=== PATIENT | male | born 1940 | race Caucasian/White ===

== ENCOUNTER 2016-06-21 09:21 | Emergency (ER) | payer OTHER ==
[~2016-06-21] VITALS: Ht 172.7 cm; Wt 97.0 kg
[~2016-06-21 09:21] MED LIST: ADVAIR 250/501 DISK IH; ADVAIR HFA120 INHAL1 IH; ALBUTEROL SULF8.5 GM IH; ALDACTONE25 MG PO; AMBIEN10 MG PO; AMLODIPINE BESYL5 MG PO; ASPIR 8181 M1 PO; ASPIRIN E.C.81 M1 PO; ASPIRIN325 MG PO; ATORVASTATIN CA40 MG PO; ATORVASTATIN CA80 MG PO; BACTRIM,SEPT1 TABLET PO; BENTYL10 MG PO; BISAC-EVAC10 MG PR; CALCIUM600 M1 PO; CIPRO500 MG PO; CITRATE OF MAG296 ML PO; CRESTOR40 MG PO; DESYREL100 MG PO; DUONEB3 ML IH; ELIQUIS5 MG PO; ENDOCET 5-3251 EACH PO; ERGOCALCIF50000 UNIT PO; ESOMEPRAZOLE MAG; FAMOTIDINE20 MG PO; FLOMAX0.4 MG PO; FUROSEMIDE20 MG PO; FUROSEMIDE40 MG PO; GLIPIZIDE10 M1 PO; GLIPIZIDE5 M1 PO; Glucotrol PO; HUMULIN 70100 UNIT/2 SC; HYDROCODON-ACE1 EAC7 PO; K-DUR10 ME1 PO; KLOR-CON M1010 MEQ PO; LANTUS; LANTUS 10100 UNITS/ SC; LANTUS 3 M100 UNITS/ SC; LASIX20 MG PO; LEVOFLOXACIN750 MG PO; LEVOXYL50 MCG PO; LISINOPRIL5 MG PO; LO-DOSE ASPIRIN81 M2 PO; LOPRESSOR25 MG PO; LOVENOX30 MG/0.3 SC; METFORMIN HCL500 M1 PO; METOPROLOL SUCC50 MG PO; MIDODRINE HCL5 MG PO; MILK OF MAGN PO; MIRALAX17 GM PO; MUCINEX600 MG PO; NIZORAL 2% CREA15 GM TP; NOVOLOG MI100 UNIT/4 SC; PANTOPRAZOLE SO40 MG PO; PANTOPRAZOLE SODIUM; PERCOCET 5/31 TABLET PO; POTASSIUM CHLO10 ME4 PO; PRINIVIL5 MG PO; PROTONIX40 MG PO; SIMVASTATIN80 MG PO; SPIRIVA RESPIMAT4 GM IH; SPIRIVA1 INHALATI IH; SPIRONOLACTONE25 MG PO; STOOL SOFTENER1 EAC1 PO; SYMBICORT60 INHALAT IH; TAMSULOSIN HCL0.4 MG PO; THEO-24300 MG PO; THEO-DUR,THEOC200 MG PO; THEOCHRON200 MG PO; THEOPHYLLINE A300 M1 PO; TOPROL XL50 MG PO; TRAZODONE HCL100 MG PO; TRAZODONE HCL50 MG PO; VALIUM5 MG PO; VENTOLIN HFA18 GM IH; VITAMIN D1000 INTUN PO; VITAMIN D1000 UNIT PO; VITAMIN D31000 UNI2 PO; VITAMIN D50000 UNI4 PO; Vitamin D PO; XOPENEX HFA15 GM IH; ZOLPIDEM TARTRA10 MG PO; ZOLPIDEM TARTRAT5 MG PO; predniSONE PO
[2016-06-21 10:31] LABS: MCH 30.5 PG (29.0-34.0); MCV 92.5 FL (86-99); RBC DIS.WIDTH-CV 15.3 % (11.8-14.6); RBC DIS.WIDTH-SD 49.2 % (39-53); WHITE BLOOD COUNT 6.7 K/uL (4.1-10.2)
[2016-06-21 10:34] LABS: PLATELET COUNT 266 K/uL (156-360)
[2016-06-21 10:47] LABS: CHLORIDE 104 mEq/L (99-109); POTASSIUM 4.5 mEq/L (3.7-5.4); SODIUM 134 mEq/L (136-147)
[2016-06-21 10:49] LABS: GLUCOSE 132 mg/dL (70-99)
[2016-06-21 10:50] LABS: ANION GAP 12 MEQ/L (2-14)
[2016-06-21 10:51] LABS: TOTAL BILIRUBIN 0.6 mg/dL (0.0-1.0)
[2016-06-21 10:53] LABS: ALKALINE PHOSPHATASE 81 IU/L (3-129); GFR ESTIMATE (CALCULATED) 45 mL/min/
[2016-06-21 10:54] LABS: UREA NITROGEN (BUN) 33 mg/dL (9-23)
[2016-06-21 13:50] VITALS: BP 170/90
[2016-06-22] MEDS ORDERED: DURAGESIC50 MCG TD (15:36)
== END 2016-06-21 13:50 | disposition home or self-care (01) ==
LOC: EME 09:21
DX: K59.00 Constipation, unspecified (principal); R10.9 Unspecified abdominal pain; E11.9 Type 2 diabetes mellitus without complications; I25.2 Old myocardial infarction
CPT/HCPCS: 74020; 80053; 81003; 85027; 99281; 99284

== ENCOUNTER 2016-06-22 09:37 | Emergency (ER) | payer OTHER ==
[~2016-06-22] VITALS: Ht 172.7 cm; Wt 96.4 kg
[2016-06-22 13:31] LABS: HEMATOCRIT 34.4 % (38.0-50.0); MCHC 32.6 G/DL (30.0-36.0); MCV 92.2 FL (86-99); MEAN PLAT.VOLUME 9.4 uM^3 (9.0-12.4); PLATELET COUNT 239 K/uL (156-360); RBC DIS.WIDTH-CV 15.3 % (11.8-14.6); RBC DIS.WIDTH-SD 49.6 % (39-53); RED BLOOD COUNT 3.73 M/uL (4.00-5.50); WHITE BLOOD COUNT 6.1 K/uL (4.1-10.2)
[2016-06-22 13:32] LABS: CHLORIDE 105 mEq/L (99-109); POTASSIUM 4.6 mEq/L (3.7-5.4); SODIUM 134 mEq/L (136-147)
[2016-06-22 13:34] LABS: GLUCOSE 117 mg/dL (70-99)
[2016-06-22 13:35] LABS: ANION GAP 8 MEQ/L (2-14)
[2016-06-22 13:38] LABS: GFR ESTIMATE (CALCULATED) 37 mL/min/
[2016-06-22 13:39] LABS: UREA NITROGEN (BUN) 38 mg/dL (9-23)
[2016-06-22 14:43] LABS: ADD MIUA? YES; BILIRUBIN SMALL; BLOOD LARGE; COLOR DK YELLOW ((YELLOW)); GLUCOSE (STRIP) 250; KETONES TRACE; LEUKOCYTES NEGATIVE; NITRITE NEGATIVE; PH, URINE 5.5 (5-8); PROTEIN (STRIP) >=300; SPECIFIC GRAVITY 1.034 (1.000-1.030); UROBILINOGEN 0.2 MG/DL (0.2-1.0)
[2016-06-22 15:00] LABS: EPITHELIAL CELLS 1+; WHITE BLOOD CELLS NONE SEEN /HPF (0-5)
[2016-06-22 15:01] LABS: BACTERIA RARE; CASTS PRESENT /LPF; CRYSTALS NONE SEEN; MUCUS NONE SEEN; UCUL ADDED? NO
[2016-06-22] MEDS ORDERED: DURAGESIC50 MCG TD (15:36)
[2016-06-22 16:02] VITALS: BP 132/95
== END 2016-06-22 16:04 | disposition home or self-care (01) ==
LOC: EME 09:37
PROVIDERS: Emergency Medicine
DX: M54.5 Low back pain (principal); R41.0 Disorientation, unspecified; E11.9 Type 2 diabetes mellitus without complications; I25.2 Old myocardial infarction; I50.9 Heart failure, unspecified; W01.198A Fall on same level from slipping, tripping and stumbling with subsequent striking against other object, initial encounter; Z95.1 Presence of aortocoronary bypass graft; Z95.0 Presence of cardiac pacemaker
CPT/HCPCS: 70450; 80048; 81003; 85027; 99281; 99285

== ENCOUNTER 2016-07-08 15:11 | Inpatient (IN) | payer OTHER ==
[~2016-07-08] VITALS: Ht 152.4 cm; Wt 98.7 kg
[~2016-07-08 15:11] MED LIST changes: +DURAGESIC50 MCG TD
[2016-07-08 16:45] LABS: HEMATOCRIT 31.3 % (38.0-50.0); MCH 30.4 PG (29.0-34.0); MCHC 32.6 G/DL (30.0-36.0); MCV 93.2 FL (86-99); MEAN PLAT.VOLUME 8.8 uM^3 (9.0-12.4); PLATELET COUNT 302 K/uL (156-360); RBC DIS.WIDTH-CV 15.2 % (11.8-14.6); RBC DIS.WIDTH-SD 49.1 % (39-53); RED BLOOD COUNT 3.36 M/uL (4.00-5.50); WHITE BLOOD COUNT 5.4 K/uL (4.1-10.2)
[2016-07-08 16:56] LABS: CHLORIDE 105 mEq/L (99-109); POTASSIUM 5.1 mEq/L (3.7-5.4); SODIUM 135 mEq/L (136-147)
[2016-07-08 16:58] LABS: GLUCOSE 108 mg/dL (70-99)
[2016-07-08 16:59] LABS: ANION GAP 6 MEQ/L (2-14)
[2016-07-08 17:00] LABS: TOTAL BILIRUBIN 0.2 mg/dL (0.0-1.0)
[2016-07-08 17:02] LABS: ALKALINE PHOSPHATASE 97 IU/L (3-129); GFR ESTIMATE (CALCULATED) 42 mL/min/
[2016-07-08 17:03] LABS: UREA NITROGEN (BUN) 35 mg/dL (9-23)
[2016-07-08 17:05] LABS: LIPASE 48 U/L (1.0-51.0)
[2016-07-08 17:41] LABS: ADD MIUA? YES; BILIRUBIN NEGATIVE; BLOOD MODERATE; COLOR YELLOW ((YELLOW)); GLUCOSE (STRIP) 250; KETONES NEGATIVE; LEUKOCYTES NEGATIVE; NITRITE NEGATIVE; PROTEIN (STRIP) >=300; SPECIFIC GRAVITY 1.027 (1.000-1.030); UROBILINOGEN 0.2 MG/DL (0.2-1.0)
[2016-07-08 17:43] LABS: TROP-I INTERPRETATION NEGATIVE
[2016-07-08] MEDS ORDERED: ENDOCET 5-3251 EACH PO (18:36)
[2016-07-08 18:38] LABS: CASTS NONE SEEN /LPF; CRYSTALS NONE SEEN; MUCUS NONE SEEN; RED BLOOD CELLS 0-5 /HPF (0-5); WHITE BLOOD CELLS NONE SEEN /HPF (0-5)
[2016-07-08 18:39] LABS: BACTERIA RARE; EPITHELIAL CELLS NONE SEEN
[2016-07-09 07:24] LABS: INTERNAL CONTROL VALID? YES
[2016-07-09 16:49] VITALS: BP 151/85
[2016-07-09] MEDS ORDERED: FLOMAX0.4 MG PO (18:15)
[2016-07-09] MEDS ORDERED: LASIX20 MG PO (18:16)
[2016-07-09] MEDS ORDERED: DURAGESIC25 MCG TD (18:21)
[2016-07-09] MEDS ORDERED: LISINOPRIL5 MG PO (18:22)
[2016-07-09] MEDS ORDERED: ELIQUIS5 MG PO (18:23)
[2016-07-09] MEDS ORDERED: KLOR-CON 1010 ME1 PO (18:26)
[2016-07-09] MEDS ORDERED: METOPROLOL TART25 MG PO (18:27)
[2016-07-09] MEDS ORDERED: ATORVASTATIN CA80 MG PO (19:38)
[2016-07-09 22:46] VITALS: BP 172/86
[2016-07-10 03:42] LABS: ADD MIUA? YES; BILIRUBIN NEGATIVE; BLOOD LARGE; COLOR YELLOW ((YELLOW)); GLUCOSE (STRIP) 250; KETONES NEGATIVE; LEUKOCYTES NEGATIVE; NITRITE NEGATIVE; PROTEIN (STRIP) >=300; SPECIFIC GRAVITY 1.024 (1.000-1.030); UROBILINOGEN 0.2 MG/DL (0.2-1.0)
[2016-07-10 04:15] LABS: BACTERIA 1+; CASTS PRESENT /LPF; CRYSTALS NONE SEEN; EPITHELIAL CELLS NONE SEEN; MUCUS NONE SEEN; UCUL ADDED? NO
[2016-07-10 04:16] LABS: CELLULAR CASTS 0-5 /LPF; COARSE GRANULAR CASTS 0-5 /LPF; FINE GRANULAR CASTS 0-5 /LPF; HYALINE CASTS 0-5 /LPF
[2016-07-10 06:52] LABS: EOSINOPHIL (%) 4.6 % (0-5); EOSINOPHIL COUNT 0.2 K/uL (0-0.3); HEMATOCRIT 30.8 % (38.0-50.0); IMMATURE GRANULOCYTE (%) 0.5 % (0.0-0.7); MCH 30.2 PG (29.0-34.0); MCHC 31.8 G/DL (30.0-36.0); MCV 94.8 FL (86-99); MEAN PLAT.VOLUME 9.3 uM^3 (9.0-12.4); MONOCYTE (%) 10.2 % (3-12); MONOCYTE COUNT 0.4 K/uL (0-0.8); NEUTROPHIL (%) 60.1 % (45-76); NEUTROPHIL COUNT 2.5 K/uL (1.8-6.4); PLATELET COUNT 271 K/uL (156-360); RBC DIS.WIDTH-CV 15.5 % (11.8-14.6); RBC DIS.WIDTH-SD 53.5 % (39-53); RED BLOOD COUNT 3.25 M/uL (4.00-5.50); WHITE BLOOD COUNT 4.1 K/uL (4.1-10.2)
[2016-07-10 07:15] LABS: ANION GAP 6 MEQ/L (2-14); CHLORIDE 106 MEQ/L (99-109); GFR ESTIMATE (CALCULATED) 45 mL/min/; GLUCOSE 88 mg/dL (70-99); POTASSIUM 4.9 MEQ/L (3.7-5.4); SAMPLE HEMOLYSIS CHECK 0; SAMPLE ICTERIC CHECK 0; SAMPLE LIPEMIA CHECK 0; SODIUM 134 MEQ/L (136-147); UREA NITROGEN (BUN) 32 mg/dL (9-23)
[2016-07-10 08:43] VITALS: BP 175/83
[2016-07-10] MEDS ORDERED: AMBIEN10 MG PO (12:52)
[2016-07-10 16:47] VITALS: BP 180/93
[2016-07-10 23:15] VITALS: BP 151/82
[2016-07-11 06:22] LABS: ANION GAP 5 MEQ/L (2-14); CHLORIDE 105 MEQ/L (99-109); GFR ESTIMATE (CALCULATED) 42 mL/min/; GLUCOSE 96 mg/dL (70-99); POTASSIUM 4.3 MEQ/L (3.7-5.4); SAMPLE HEMOLYSIS CHECK 0; SAMPLE ICTERIC CHECK 0; SAMPLE LIPEMIA CHECK 0; SODIUM 136 MEQ/L (136-147); UREA NITROGEN (BUN) 34 mg/dL (9-23)
[2016-07-11 08:22] VITALS: BP 135/72
[2016-07-11 16:27] VITALS: BP 162/84
[2016-07-11 23:24] VITALS: BP 158/78
[2016-07-12 06:48] LABS: HEMATOCRIT 28.5 % (38.0-50.0); MCH 29.8 PG (29.0-34.0); MCHC 32.3 G/DL (30.0-36.0); MCV 92.2 FL (86-99); MEAN PLAT.VOLUME 8.9 uM^3 (9.0-12.4); PLATELET COUNT 252 K/uL (156-360); RBC DIS.WIDTH-CV 15.7 % (11.8-14.6); RBC DIS.WIDTH-SD 52.8 % (39-53); RED BLOOD COUNT 3.09 M/uL (4.00-5.50); WHITE BLOOD COUNT 3.5 K/uL (4.1-10.2)
[2016-07-12 07:11] LABS: ANION GAP 4 MEQ/L (2-14); CHLORIDE 106 MEQ/L (99-109); GFR ESTIMATE (CALCULATED) 45 mL/min/; GLUCOSE 106 mg/dL (70-99); MAGNESIUM 1.8 mg/dl (1.3-2.7); POTASSIUM 4.3 MEQ/L (3.7-5.4); SAMPLE HEMOLYSIS CHECK 0; SAMPLE ICTERIC CHECK 0; SAMPLE LIPEMIA CHECK 0; SODIUM 135 MEQ/L (136-147); UREA NITROGEN (BUN) 34 mg/dL (9-23)
[2016-07-12 07:57] VITALS: BP 157/83
[2016-07-12 16:08] VITALS: BP 158/79
[2016-07-12 23:10] VITALS: BP 148/77
[2016-07-13 06:42] LABS: HEMATOCRIT 29.6 % (38.0-50.0); MCH 30.5 PG (29.0-34.0); MCHC 32.8 G/DL (30.0-36.0); MCV 93.1 FL (86-99); MEAN PLAT.VOLUME 9.6 uM^3 (9.0-12.4); PLATELET COUNT 260 K/uL (156-360); RBC DIS.WIDTH-CV 15.8 % (11.8-14.6); RBC DIS.WIDTH-SD 53.5 % (39-53); RED BLOOD COUNT 3.18 M/uL (4.00-5.50); WHITE BLOOD COUNT 3.8 K/uL (4.1-10.2)
[2016-07-13 07:10] LABS: ANION GAP 7 MEQ/L (2-14); CHLORIDE 105 MEQ/L (99-109); GFR ESTIMATE (CALCULATED) 45 mL/min/; GLUCOSE 93 mg/dL (70-99); POTASSIUM 4.5 MEQ/L (3.7-5.4); SAMPLE HEMOLYSIS CHECK 0; SAMPLE ICTERIC CHECK 0; SAMPLE LIPEMIA CHECK 0; SODIUM 137 MEQ/L (136-147); UREA NITROGEN (BUN) 29 mg/dL (9-23)
[2016-07-13 08:00] VITALS: BP 157/81
[2016-07-13 13:34] VITALS: BP 155/84
[2016-07-14 07:20] LABS: HEMATOCRIT 30.8 % (38.0-50.0); MCH 30.4 PG (29.0-34.0); MCHC 32.5 G/DL (30.0-36.0); MCV 93.6 FL (86-99); MEAN PLAT.VOLUME 8.9 uM^3 (9.0-12.4); PLATELET COUNT 270 K/uL (156-360); RBC DIS.WIDTH-CV 15.9 % (11.8-14.6); RBC DIS.WIDTH-SD 54.3 % (39-53); RED BLOOD COUNT 3.29 M/uL (4.00-5.50)
[2016-07-14 07:27] LABS: ANION GAP 10 MEQ/L (2-14); CHLORIDE 104 MEQ/L (99-109); POTASSIUM 4.9 MEQ/L (3.7-5.4); SAMPLE HEMOLYSIS CHECK 0; SAMPLE ICTERIC CHECK 0; SAMPLE LIPEMIA CHECK 0; SODIUM 136 MEQ/L (136-147)
[2016-07-14 07:36] LABS: GFR ESTIMATE (CALCULATED) 31 mL/min/; GLUCOSE 116 mg/dL (70-99); UREA NITROGEN (BUN) 33 mg/dL (9-23)
[2016-07-14 08:31] VITALS: BP 157/82
[2016-07-14 12:05] VITALS: BP 175/87
[2016-07-14 16:37] VITALS: BP 143/81
[2016-07-14 23:42] VITALS: BP 138/61
[2016-07-15 08:00] VITALS: BP 111/55
[2016-07-15 09:54] LABS: ANION GAP 8 MEQ/L (2-14); CHLORIDE 100 MEQ/L (99-109); GFR ESTIMATE (CALCULATED) 28 mL/min/; GLUCOSE 118 mg/dL (70-99); POTASSIUM 4.9 MEQ/L (3.7-5.4); SAMPLE HEMOLYSIS CHECK 0; SAMPLE ICTERIC CHECK 0; SAMPLE LIPEMIA CHECK 0; SODIUM 131 MEQ/L (136-147); UREA NITROGEN (BUN) 37 mg/dL (9-23)
[2016-07-15 19:09] VITALS: BP 141/65
[2016-07-15 20:54] VITALS: BP 141/70
[2016-07-16 00:11] VITALS: BP 139/76
[2016-07-16 07:30] LABS: ANION GAP 10 MEQ/L (2-14); CHLORIDE 99 MEQ/L (99-109); GFR ESTIMATE (CALCULATED) 21 mL/min/; GLUCOSE 98 mg/dL (70-99); POTASSIUM 5.1 MEQ/L (3.7-5.4); SAMPLE HEMOLYSIS CHECK 0; SAMPLE ICTERIC CHECK 0; SAMPLE LIPEMIA CHECK 0; SODIUM 129 MEQ/L (136-147); UREA NITROGEN (BUN) 43 mg/dL (9-23)
[2016-07-16 08:37] VITALS: BP 117/64
[2016-07-16 16:13] VITALS: BP 123/68
[2016-07-16 23:13] VITALS: BP 126/69
[2016-07-17 06:34] LABS: EOSINOPHIL (%) 0.7 % (0-5); EOSINOPHIL COUNT 0.1 K/uL (0-0.3); HEMATOCRIT 27.2 % (38.0-50.0); IMMATURE GRANULOCYTE (%) 0.3 % (0.0-0.7); LYMPHOCYTE COUNT 0.4 K/uL (1.0-2.8); MCH 30.2 PG (29.0-34.0); MCHC 32.4 G/DL (30.0-36.0); MCV 93.5 FL (86-99); MEAN PLAT.VOLUME 9.3 uM^3 (9.0-12.4); MONOCYTE (%) 8.3 % (3-12); MONOCYTE COUNT 0.6 K/uL (0-0.8); NEUTROPHIL (%) 85.4 % (45-76); NEUTROPHIL COUNT 6.6 K/uL (1.8-6.4); PLATELET COUNT 243 K/uL (156-360); RBC DIS.WIDTH-SD 54.4 % (39-53); RED BLOOD COUNT 2.91 M/uL (4.00-5.50); WHITE BLOOD COUNT 7.7 K/uL (4.1-10.2)
[2016-07-17 06:36] LABS: ALKALINE PHOSPHATASE 73 IU/L (3-129); ANION GAP 6 MEQ/L (2-14); CHLORIDE 100 MEQ/L (99-109); DIRECT BILIRUBIN 0.1 mg/dL (0.0-0.3); GFR ESTIMATE (CALCULATED) 19 mL/min/; GLUCOSE 90 mg/dL (70-99); POTASSIUM 5.3 MEQ/L (3.7-5.4); SAMPLE HEMOLYSIS CHECK 0; SAMPLE ICTERIC CHECK 0; SAMPLE LIPEMIA CHECK 0; SODIUM 128 MEQ/L (136-147); TOTAL BILIRUBIN 0.2 MG/DL (0.0-1.0); UREA NITROGEN (BUN) 46 mg/dL (9-23); URIC ACID 6.8 mg/dL (3.1-9.2)
[2016-07-17 07:15] VITALS: BP 136/72
[2016-07-17 07:45] LABS: UR CREATININE CONCENTRATION 80.2 MG/DL
[2016-07-17 15:20] VITALS: BP 129/65
[2016-07-17 21:15] VITALS: BP 144/77
[2016-07-17 23:41] VITALS: BP 126/68
[2016-07-18 05:49] LABS: EOSINOPHIL (%) 1.2 % (0-5); EOSINOPHIL COUNT 0.1 K/uL (0-0.3); HEMATOCRIT 27.2 % (38.0-50.0); IMMATURE GRANULOCYTE (%) 0.3 % (0.0-0.7); LYMPHOCYTE COUNT 0.4 K/uL (1.0-2.8); MCH 30.6 PG (29.0-34.0); MCHC 32.7 G/DL (30.0-36.0); MCV 93.5 FL (86-99); MEAN PLAT.VOLUME 9.2 uM^3 (9.0-12.4); MONOCYTE (%) 11.6 % (3-12); MONOCYTE COUNT 0.8 K/uL (0-0.8); NEUTROPHIL (%) 80.5 % (45-76); NEUTROPHIL COUNT 5.2 K/uL (1.8-6.4); PLATELET COUNT 245 K/uL (156-360); RBC DIS.WIDTH-CV 15.9 % (11.8-14.6); RBC DIS.WIDTH-SD 54.4 % (39-53); RED BLOOD COUNT 2.91 M/uL (4.00-5.50); WHITE BLOOD COUNT 6.5 K/uL (4.1-10.2)
[2016-07-18 06:14] LABS: ANION GAP 9 MEQ/L (2-14); CHLORIDE 98 MEQ/L (99-109); GFR ESTIMATE (CALCULATED) 18 mL/min/; GLUCOSE 104 mg/dL (70-99); SAMPLE HEMOLYSIS CHECK 0; SAMPLE ICTERIC CHECK 0; SAMPLE LIPEMIA CHECK 0; SODIUM 128 MEQ/L (136-147); UREA NITROGEN (BUN) 49 mg/dL (9-23)
[2016-07-18 07:18] VITALS: BP 137/71
[2016-07-18 08:48] LABS: INTER. NORMALIZED RATIO 1.1; PROTHROMBIN TIME 11.2 (9.2-11.2)
[2016-07-18 09:05] LABS: PTT 30.8 (25-32)
[2016-07-18 16:08] VITALS: BP 148/76
[2016-07-18 23:17] VITALS: BP 128/66
[2016-07-19 06:26] LABS: EOSINOPHIL (%) 2.4 % (0-5); EOSINOPHIL COUNT 0.2 K/uL (0-0.3); HEMATOCRIT 27.6 % (38.0-50.0); IMMATURE GRANULOCYTE (%) 0.5 % (0.0-0.7); LYMPHOCYTE COUNT 0.5 K/uL (1.0-2.8); MCH 29.5 PG (29.0-34.0); MCHC 31.9 G/DL (30.0-36.0); MCV 92.6 FL (86-99); MEAN PLAT.VOLUME 9.1 uM^3 (9.0-12.4); MONOCYTE COUNT 0.7 K/uL (0-0.8); NEUTROPHIL (%) 77.3 % (45-76); NEUTROPHIL COUNT 4.8 K/uL (1.8-6.4); PLATELET COUNT 261 K/uL (156-360); RBC DIS.WIDTH-CV 15.9 % (11.8-14.6); RBC DIS.WIDTH-SD 54.2 % (39-53); RED BLOOD COUNT 2.98 M/uL (4.00-5.50); WHITE BLOOD COUNT 6.2 K/uL (4.1-10.2)
[2016-07-19 06:53] LABS: ANION GAP 10 MEQ/L (2-14); CHLORIDE 100 MEQ/L (99-109); GFR ESTIMATE (CALCULATED) 16 mL/min/; GLUCOSE 104 mg/dL (70-99); POTASSIUM 4.9 MEQ/L (3.7-5.4); SAMPLE HEMOLYSIS CHECK 0; SAMPLE ICTERIC CHECK 0; SAMPLE LIPEMIA CHECK 0; SODIUM 133 MEQ/L (136-147); UREA NITROGEN (BUN) 54 mg/dL (9-23)
[2016-07-19 07:20] VITALS: BP 147/66
[2016-07-19 12:30] VITALS: BP 148/72
[2016-07-19 15:22] VITALS: BP 158/82
[2016-07-19 19:34] VITALS: BP 150/74
[2016-07-19 22:25] VITALS: BP 145/75
[2016-07-20 03:44] VITALS: BP 128/64
[2016-07-20 06:36] LABS: EOSINOPHIL (%) 2.8 % (0-5); EOSINOPHIL COUNT 0.2 K/uL (0-0.3); HEMATOCRIT 26.7 % (38.0-50.0); IMMATURE GRANULOCYTE (%) 0.4 % (0.0-0.7); LYMPHOCYTE COUNT 0.6 K/uL (1.0-2.8); MCH 30.7 PG (29.0-34.0); MEAN PLAT.VOLUME 9.4 uM^3 (9.0-12.4); MONOCYTE COUNT 0.7 K/uL (0-0.8); NEUTROPHIL COUNT 4.2 K/uL (1.8-6.4); PLATELET COUNT 262 K/uL (156-360); RBC DIS.WIDTH-CV 15.7 % (11.8-14.6); RBC DIS.WIDTH-SD 53.7 % (39-53); RED BLOOD COUNT 2.87 M/uL (4.00-5.50); WHITE BLOOD COUNT 5.7 K/uL (4.1-10.2)
[2016-07-20 07:01] LABS: ANION GAP 9 MEQ/L (2-14); CHLORIDE 100 MEQ/L (99-109); GFR ESTIMATE (CALCULATED) 15 mL/min/; GLUCOSE 115 mg/dL (70-99); SAMPLE HEMOLYSIS CHECK 0; SAMPLE ICTERIC CHECK 0; SAMPLE LIPEMIA CHECK 0; SODIUM 134 MEQ/L (136-147); UREA NITROGEN (BUN) 55 mg/dL (9-23)
[2016-07-20 07:40] VITALS: BP 137/75
[2016-07-20 15:20] VITALS: BP 159/76
[2016-07-20 19:26] VITALS: BP 152/88
[2016-07-20 22:36] VITALS: BP 156/86
[2016-07-21] VITALS (7 sets, daily range): BP systolic 134–188; BP diastolic 73–90
[2016-07-21 06:50] LABS: EOSINOPHIL (%) 2.2 % (0-5); EOSINOPHIL COUNT 0.1 K/uL (0-0.3); HEMATOCRIT 27.5 % (38.0-50.0); IMMATURE GRANULOCYTE (%) 0.7 % (0.0-0.7); LYMPHOCYTE COUNT 0.6 K/uL (1.0-2.8); MCHC 32.7 G/DL (30.0-36.0); MCV 91.7 FL (86-99); MEAN PLAT.VOLUME 9.1 uM^3 (9.0-12.4); MONOCYTE COUNT 0.7 K/uL (0-0.8); NEUTROPHIL (%) 74.4 % (45-76); NEUTROPHIL COUNT 4.5 K/uL (1.8-6.4); PLATELET COUNT 293 K/uL (156-360); RBC DIS.WIDTH-SD 53.4 % (39-53)
[2016-07-21 07:17] LABS: ANION GAP 11 MEQ/L (2-14); CHLORIDE 99 MEQ/L (99-109); GFR ESTIMATE (CALCULATED) 15 mL/min/; GLUCOSE 109 mg/dL (70-99); POTASSIUM 4.6 MEQ/L (3.7-5.4); SAMPLE HEMOLYSIS CHECK 0; SAMPLE ICTERIC CHECK 0; SAMPLE LIPEMIA CHECK 0; SODIUM 133 MEQ/L (136-147); UREA NITROGEN (BUN) 58 mg/dL (9-23)
[2016-07-22 02:51] VITALS: BP 159/73
[2016-07-22 06:50] LABS: EOSINOPHIL (%) 2.8 % (0-5); EOSINOPHIL COUNT 0.2 K/uL (0-0.3); HEMATOCRIT 27.1 % (38.0-50.0); IMMATURE GRANULOCYTE (%) 0.4 % (0.0-0.7); LYMPHOCYTE COUNT 0.6 K/uL (1.0-2.8); MCH 29.4 PG (29.0-34.0); MCHC 32.5 G/DL (30.0-36.0); MCV 90.6 FL (86-99); MEAN PLAT.VOLUME 9.1 uM^3 (9.0-12.4); MONOCYTE (%) 8.7 % (3-12); MONOCYTE COUNT 0.6 K/uL (0-0.8); NEUTROPHIL (%) 79.3 % (45-76); NEUTROPHIL COUNT 5.3 K/uL (1.8-6.4); PLATELET COUNT 295 K/uL (156-360); RBC DIS.WIDTH-CV 15.9 % (11.8-14.6); RBC DIS.WIDTH-SD 52.5 % (39-53); RED BLOOD COUNT 2.99 M/uL (4.00-5.50); WHITE BLOOD COUNT 6.7 K/uL (4.1-10.2)
[2016-07-22 07:15] LABS: ANION GAP 8 MEQ/L (2-14); CHLORIDE 100 MEQ/L (99-109); GFR ESTIMATE (CALCULATED) 16 mL/min/; GLUCOSE 118 mg/dL (70-99); POTASSIUM 4.8 MEQ/L (3.7-5.4); SAMPLE HEMOLYSIS CHECK 0; SAMPLE ICTERIC CHECK 0; SAMPLE LIPEMIA CHECK 0; SODIUM 133 MEQ/L (136-147); UREA NITROGEN (BUN) 54 mg/dL (9-23)
[2016-07-22 07:45] VITALS: BP 189/86
[2016-07-22 13:36] VITALS: BP 164/79
[2016-07-22] MEDS ORDERED: NIFEDIPINE ER30 MG PO (13:42)
[2016-07-22 15:33] VITALS: BP 166/96
== END 2016-07-22 16:45 | DRG 668 ==
LOC: EME 15:11 → 5EAST 23:01 → EDOF 23:01 → 5EAST 07-09 16:18
PROVIDERS: Hospitalist; Internal Medicine; Internal Medicine Nephrology; Nurse Practitioner Family; Urology
PROC: 0TBB8ZZ Excision of Bladder, Via Natural or Artificial Opening Endoscopic (ICD-10-PCS; principal; 2016-07-13)
DX: C67.9 Malignant neoplasm of bladder, unspecified (principal); I50.23 Acute on chronic systolic (congestive) heart failure; J18.9 Pneumonia, unspecified organism; J44.0 Chronic obstructive pulmonary disease with (acute) lower respiratory infection; E87.1 Hypo-osmolality and hyponatremia; Z68.41 Body mass index [BMI] 40.0-44.9, adult; N17.9 Acute kidney failure, unspecified; R18.8 Other ascites; J90 Pleural effusion, not elsewhere classified; J44.1 Chronic obstructive pulmonary disease with (acute) exacerbation; R74.0 Nonspecific elevation of levels of transaminase and lactic acid dehydrogenase [LDH]; N13.30 Unspecified hydronephrosis; R10.32 Left lower quadrant pain; I48.0 Paroxysmal atrial fibrillation; N28.89 Other specified disorders of kidney and ureter; E66.9 Obesity, unspecified; I12.9 Hypertensive chronic kidney disease with stage 1 through stage 4 chronic kidney disease, or unspecified chronic kidney disease; E78.5 Hyperlipidemia, unspecified; N32.89 Other specified disorders of bladder; I25.2 Old myocardial infarction; E55.9 Vitamin D deficiency, unspecified; N18.3 Chronic kidney disease, stage 3 (moderate); R31.9 Hematuria, unspecified; I25.10 Atherosclerotic heart disease of native coronary artery without angina pectoris; Z95.0 Presence of cardiac pacemaker; R06.89 Other abnormalities of breathing; Z91.19 Patient's noncompliance with other medical treatment and regimen; E11.22 Type 2 diabetes mellitus with diabetic chronic kidney disease; R53.1 Weakness; Z87.891 Personal history of nicotine dependence
CPT/HCPCS: 71010; 71020; 74176; 76604; 76770; 78709; 80048; 80053; 80069; 80076; 81003; 82570; 82945; 82948; 83615 91; 83690; 83735; 83880; 83986 90; 84100; 84145 90; 84156; 84157; 84484; 84550; 85025; 85027; 85610; 85730; 87070; 87086; 87205; 87449; 88305; 89051; 93005; 93306; 94760; 94799; 97530 GP; 99202; 99281; 99285; A9562; J0330; J0696; J1170; J1644; J1940; J1956; J2250; J2270; J2405; J3010; J7030; J7050; P9047

== ENCOUNTER 2016-09-17 22:56 | Inpatient (IN) | payer OTHER ==
[~2016-09-17] VITALS: Ht 167.6 cm; Wt 102.4 kg
[~2016-09-17 22:56] MED LIST changes: +ASCORBIC ACID500 M3 PO; +AUGMENTIN500 MG PO; +CALCITRIOL0.25 MCG PO; +DURAGESIC12 MCG TD; +DURAGESIC25 MCG TD; +IRON325 MG PO; +KLOR-CON 1010 ME1 PO; +LASIX40 MG PO; +METOPROLOL TART25 MG PO; +NIFEDIPINE ER30 MG PO; +PROBIOTIC1 EAC1 PO; +VITAMIN D-32000 UNI2 PO; +ZOLOFT50 MG PO
[2016-09-18 01:09] LABS: EOSINOPHIL (%) 6.3 % (0-5); EOSINOPHIL COUNT 0.3 K/uL (0-0.3); HEMATOCRIT 32.4 % (38.0-50.0); IMMATURE GRANULOCYTE (%) 0.4 % (0.0-0.7); INSTRUMENT ABS NEUTROPHIL CT 3.4 K/uL; LYMPHOCYTE COUNT 0.7 K/uL (1.0-2.8); MCH 29.7 PG (29.0-34.0); MCHC 30.6 G/DL (30.0-36.0); MCV 97.3 FL (86-99); MEAN PLAT.VOLUME 9.6 uM^3 (9.0-12.4); MONOCYTE (%) 9.6 % (3-12); MONOCYTE COUNT 0.5 K/uL (0-0.8); NEUTROPHIL (%) 69.1 % (45-76); NEUTROPHIL COUNT 3.4 K/uL (1.8-6.4); PLATELET COUNT 244 K/uL (156-360); RBC DIS.WIDTH-CV 16.8 % (11.8-14.6); RBC DIS.WIDTH-SD 60.4 % (39-53); RED BLOOD COUNT 3.33 M/uL (4.00-5.50); WHITE BLOOD COUNT 4.9 K/uL (4.1-10.2)
[2016-09-18 01:20] LABS: CHLORIDE 102 mEq/L (99-109); POTASSIUM 3.6 mEq/L (3.7-5.4); SODIUM 139 mEq/L (136-147)
[2016-09-18 01:22] LABS: GLUCOSE 125 mg/dL (70-99)
[2016-09-18 01:23] LABS: ANION GAP 5 MEQ/L (2-14)
[2016-09-18 01:24] LABS: TOTAL BILIRUBIN 0.3 mg/dL (0.0-1.0)
[2016-09-18 01:25] LABS: ALKALINE PHOSPHATASE 93 IU/L (3-129)
[2016-09-18 01:26] LABS: GFR ESTIMATE (CALCULATED) 39 mL/min/
[2016-09-18 01:27] LABS: UREA NITROGEN (BUN) 32 mg/dL (9-23)
[2016-09-18 01:29] LABS: LIPASE 76 U/L (1.0-51.0)
[2016-09-18 03:03] LABS: ADD MIUA? YES; BILIRUBIN NEGATIVE; BLOOD NEGATIVE; COLOR YELLOW ((YELLOW)); GLUCOSE (STRIP) 50; KETONES NEGATIVE; LEUKOCYTES NEGATIVE; NITRITE NEGATIVE; PROTEIN (STRIP) >=500; SPECIFIC GRAVITY 1.012 (1.000-1.030); UROBILINOGEN 0.2 MG/DL (0.2-1.0)
[2016-09-18 03:37] LABS: BACTERIA RARE /HPF; CASTS PRESENT /LPF; CRYSTALS NONE SEEN; EPITHELIAL CELLS NONE SEEN /HPF; FINE GRANULAR CASTS 0-5 /LPF; HYALINE CASTS 0-5 /LPF; MUCUS NONE SEEN /LPF; RED BLOOD CELLS RARE /HPF (0-5); UCUL ADDED? NO; WHITE BLOOD CELLS RARE /HPF (0-5)
[2016-09-18] MEDS ORDERED: LOSARTAN POTASS50 MG PO (06:08)
[2016-09-18] MEDS ORDERED: SENNA8.6 MG PO (06:11)
[2016-09-18] MEDS ORDERED: ZOLOFT50 MG PO (06:12)
[2016-09-18] MEDS ORDERED: LACTULOSE10 GM/151 PO (06:15)
[2016-09-18 08:10] VITALS: BP 122/70
[2016-09-18 12:45] VITALS: BP 122/70
[2016-09-18] MEDS ORDERED: DULCOLAX10 MG PR (13:05)
[2016-09-18] MEDS ORDERED: MILK OF MAGN PO (13:07)
[2016-09-18] MEDS ORDERED: FLEET MINERAL133 ML PR (13:07)
[2016-09-18] MEDS ORDERED: PERCOCET 5/31 TABLET PO (13:09)
[2016-09-18] MEDS ORDERED: ACETAMINOPHEN325 M3 PO (13:10)
[2016-09-18] MEDS ORDERED: ZOFRAN ODT4 MG PO (13:12)
[2016-09-18 16:30] VITALS: BP 130/64
[2016-09-18 18:18] LABS: BODY FLUID EOSINOPHILS 0 % (0-25); BODY FLUID RBC'S 2000 /MM^3 (0-100); BODY FLUID WBC'S 39 /MM^3 (0-500); COMMENT FEW MACROPHAGES AND RARE MESOTHELIAL CELLS SEEN; MONONUCLEAR WBC'S 99 %; POLYNUCLEAR WBC'S 1 % (0-25)
[2016-09-18 19:30] VITALS: BP 129/79
[2016-09-18 23:00] LABS: METH RESISTANT S AUREUS PCR POSITIVE (NEGATIVE)
[2016-09-18 23:02] LABS: PROBE CHECK PASS
[2016-09-18 23:06] VITALS: BP 129/70
[2016-09-19] VITALS (7 sets, daily range): BP systolic 113–153; BP diastolic 58–78
[2016-09-19 11:58] LABS: POINT-OF-CARE USER ID ENVKC36
[2016-09-20] VITALS (8 sets, daily range): BP systolic 121–175; BP diastolic 71–93
[2016-09-20 08:23] LABS: ANION GAP 4 MEQ/L (2-14); CHLORIDE 99 MEQ/L (99-109); GFR ESTIMATE (CALCULATED) 45 mL/min/; GLUCOSE 100 mg/dL (70-99); POTASSIUM 3.4 MEQ/L (3.7-5.4); SAMPLE HEMOLYSIS CHECK 0; SAMPLE ICTERIC CHECK 0; SAMPLE LIPEMIA CHECK 0; SODIUM 136 MEQ/L (136-147); UREA NITROGEN (BUN) 30 mg/dL (9-23)
[2016-09-21 03:33] VITALS: BP 128/70
[2016-09-21 07:00] LABS: ANION GAP 5 MEQ/L (2-14); CHLORIDE 100 MEQ/L (99-109); GFR ESTIMATE (CALCULATED) 48 mL/min/; GLUCOSE 117 mg/dL (70-99); POTASSIUM 3.5 MEQ/L (3.7-5.4); SAMPLE HEMOLYSIS CHECK 0; SAMPLE ICTERIC CHECK 0; SAMPLE LIPEMIA CHECK 0; SODIUM 138 MEQ/L (136-147); UREA NITROGEN (BUN) 30 mg/dL (9-23)
[2016-09-21 07:45] VITALS: BP 140/78
[2016-09-21 11:30] VITALS: BP 138/82
[2016-09-21 17:00] VITALS: BP 158/80
[2016-09-21 20:57] VITALS: BP 140/80
[2016-09-21 23:43] VITALS: BP 130/60
[2016-09-22 04:29] VITALS: BP 130/70
[2016-09-22 06:51] VITALS: BP 146/66
[2016-09-22 12:31] VITALS: BP 144/70
[2016-09-22 16:16] LABS: TYPE OF FLUID PLEURAL
[2016-09-22 17:04] LABS: BODY FLUID EOSINOPHILS 1 % (0-25); BODY FLUID RBC'S 2000 /MM^3 (0-100); BODY FLUID WBC'S 297 /MM^3 (0-500); COMMENT MANY MESOTHELIAL CELLS SEEN; MONONUCLEAR WBC'S 52 %; POLYNUCLEAR WBC'S 47 % (0-25)
[2016-09-22 17:23] LABS: BODY FLUID LDH 54 IU/L; BODY FLUID PROTEIN < 3.0 G/DL
[2016-09-22 19:50] VITALS: BP 153/78
[2016-09-22 23:41] VITALS: BP 120/60
[2016-09-23 07:38] LABS: ANION GAP 5 MEQ/L (2-14); CHLORIDE 98 MEQ/L (99-109); GFR ESTIMATE (CALCULATED) 45 mL/min/; POTASSIUM 4.1 MEQ/L (3.7-5.4); SAMPLE HEMOLYSIS CHECK 0; SAMPLE ICTERIC CHECK 0; SAMPLE LIPEMIA CHECK 0; SODIUM 135 MEQ/L (136-147); UREA NITROGEN (BUN) 45 mg/dL (9-23)
[2016-09-23 07:39] LABS: GLUCOSE 193 mg/dL (70-99)
[2016-09-23 08:35] VITALS: BP 142/74
[2016-09-23 12:00] VITALS: BP 132/70
[2016-09-23 16:21] VITALS: BP 128/76
[2016-09-23 20:16] VITALS: BP 142/76
[2016-09-23 23:43] VITALS: BP 142/89
[2016-09-24 00:08] LABS: BODY FLUID PH 8.1 (())
[2016-09-24 03:09] VITALS: BP 130/70
[2016-09-24 07:04] LABS: ANION GAP 4 MEQ/L (2-14); CHLORIDE 98 MEQ/L (99-109); GFR ESTIMATE (CALCULATED) 42 mL/min/; GLUCOSE 216 mg/dL (70-99); POTASSIUM 4.4 MEQ/L (3.7-5.4); SAMPLE HEMOLYSIS CHECK 0; SAMPLE ICTERIC CHECK 0; SAMPLE LIPEMIA CHECK 0; SODIUM 135 MEQ/L (136-147); UREA NITROGEN (BUN) 53 mg/dL (9-23)
[2016-09-24 07:29] VITALS: BP 138/66
[2016-09-24 10:29] VITALS: BP 141/76
[2016-09-24 19:36] VITALS: BP 124/85
[2016-09-24 23:23] VITALS: BP 130/71
[2016-09-25 03:30] VITALS: BP 138/74
[2016-09-25 06:44] VITALS: BP 131/76
[2016-09-25 10:34] VITALS: BP 123/61
[2016-09-25 15:32] VITALS: BP 125/70
[2016-09-25 20:00] VITALS: BP 130/70
[2016-09-26 00:29] VITALS: BP 132/68
[2016-09-26 04:13] VITALS: BP 132/72
[2016-09-26 07:35] VITALS: BP 136/76
[2016-09-26 11:27] VITALS: BP 138/70
[2016-09-26] MEDS ORDERED: DUONEB 2.5-0.5 M3 ML AEROSOL (13:20)
[2016-09-26] MEDS ORDERED: AUGMENTIN500 MG PO (13:20)
[2016-09-26] MEDS ORDERED: AMLODIPINE BESY10 MG PO (13:21)
[2016-09-26] MEDS ORDERED: ZOLPIDEM TARTRAT5 MG PO (13:22)
[2016-09-26] MEDS ORDERED: FUROSEMIDE40 MG PO (13:23)
[2016-09-26] MEDS ORDERED: LO-DOSE ASPIRIN81 M2 PO (13:24)
[2016-09-26 15:21] VITALS: BP 138/72
== END 2016-09-26 17:32 | DRG 166 ==
LOC: EME 22:56 → 2EAST 09-18 03:55 → EDOF 09-18 03:55 → 4EAST 09-18 03:55 → 2EAST 09-19 21:23
PROVIDERS: Emergency Medicine; Internal Medicine; Internal Medicine Pulmonary Disease; Orthopaedic Surgery
PROC: 0M943ZX Drainage of Left Elbow Bursa and Ligament, Percutaneous Approach, Diagnostic (ICD-10-PCS; principal; 2016-09-18)
PROC: 0W993ZX Drainage of Right Pleural Cavity, Percutaneous Approach, Diagnostic (ICD-10-PCS; 2016-09-22)
PROC: 0BBK8ZX Excision of Right Lung, Via Natural or Artificial Opening Endoscopic, Diagnostic (ICD-10-PCS; 2016-09-24)
PROC: 0BC38ZZ Extirpation of Matter from Right Main Bronchus, Via Natural or Artificial Opening Endoscopic (ICD-10-PCS; 2016-09-24)
DX: J44.0 Chronic obstructive pulmonary disease with (acute) lower respiratory infection (principal); J18.9 Pneumonia, unspecified organism; I13.0 Hypertensive heart and chronic kidney disease with heart failure and stage 1 through stage 4 chronic kidney disease, or unspecified chronic kidney disease; I50.33 Acute on chronic diastolic (congestive) heart failure; N18.3 Chronic kidney disease, stage 3 (moderate); E11.22 Type 2 diabetes mellitus with diabetic chronic kidney disease; I82.622 Acute embolism and thrombosis of deep veins of left upper extremity; M70.22 Olecranon bursitis, left elbow; N28.89 Other specified disorders of kidney and ureter; Z85.51 Personal history of malignant neoplasm of bladder; N40.1 Benign prostatic hyperplasia with lower urinary tract symptoms; N30.20 Other chronic cystitis without hematuria; N39.498 Other specified urinary incontinence; Z66 Do not resuscitate; I25.5 Ischemic cardiomyopathy; I25.10 Atherosclerotic heart disease of native coronary artery without angina pectoris; I25.2 Old myocardial infarction; I48.0 Paroxysmal atrial fibrillation; D63.8 Anemia in other chronic diseases classified elsewhere; E66.01 Morbid (severe) obesity due to excess calories; Z68.34 Body mass index [BMI] 34.0-34.9, adult; J45.909 Unspecified asthma, uncomplicated; E78.5 Hyperlipidemia, unspecified; M19.90 Unspecified osteoarthritis, unspecified site; E55.9 Vitamin D deficiency, unspecified; Z95.0 Presence of cardiac pacemaker; Z95.1 Presence of aortocoronary bypass graft; Z95.3 Presence of xenogenic heart valve; Z98.890 Other specified postprocedural states; Z87.891 Personal history of nicotine dependence
CPT/HCPCS: 70450; 71010; 71020; 71250; 73060; 73080; 73090; 74176; 80048; 80053; 81003; 82945; 82948; 83605; 83615; 83615 91; 83690; 83880; 83986 90; 84155; 84157; 85025; 87040; 87070; 87075; 87077; 87116; 87147; 87186; 87205; 87206; 87641; 88108; 88305; 89051; 93005; 93971; 94799; 99202; 99281; 99285; J0456; J0692; J1650; J1940; J1956; J2920; J2930; J7030; J7050; J7512

== ENCOUNTER 2016-10-11 19:30 | Inpatient (IN) | payer OTHER ==
[~2016-10-11] VITALS: Ht 172.7 cm; Wt 116.4 kg
[~2016-10-11 19:30] MED LIST changes: +ACETAMINOPHEN325 M3 PO; +AMLODIPINE BESY10 MG PO; +DULCOLAX10 MG PR; +DUONEB 2.5-0.5 M3 ML AEROSOL; +FLEET MINERAL133 ML PR; +LACTULOSE10 GM/151 PO; +LOSARTAN POTASS50 MG PO; +SENNA8.6 MG PO; +ZOFRAN ODT4 MG PO
[2016-10-11 21:51] LABS: ADD MIUA? YES; BILIRUBIN NEGATIVE; BLOOD NEGATIVE; COLOR YELLOW ((YELLOW)); GLUCOSE (STRIP) 150; KETONES NEGATIVE; LEUKOCYTES NEGATIVE; NITRITE NEGATIVE; SPECIFIC GRAVITY 1.016 (1.000-1.030); UROBILINOGEN 0.2 MG/DL (0.2-1.0)
[2016-10-11 21:57] LABS: PROTEIN (STRIP) 500
[2016-10-11 22:06] LABS: BACTERIA RARE /HPF; EPITHELIAL CELLS 1+ /HPF; MUCUS 1+ /LPF; RED BLOOD CELLS NONE SEEN /HPF (0-5); UCUL ADDED? NO; WHITE BLOOD CELLS CLUMP FEW /HPF (0-5)
[2016-10-11 22:17] LABS: EOSINOPHIL (%) 6.6 % (0-5); EOSINOPHIL COUNT 0.4 K/uL (0-0.3); HEMATOCRIT 30.8 % (38.0-50.0); IMMATURE GRANULOCYTE (%) 0.6 % (0.0-0.7); INSTRUMENT ABS NEUTROPHIL CT 3.9 K/uL; LYMPHOCYTE COUNT 0.7 K/uL (1.0-2.8); MCH 29.6 PG (29.0-34.0); MCHC 30.8 G/DL (30.0-36.0); MEAN PLAT.VOLUME 9.2 uM^3 (9.0-12.4); MONOCYTE (%) 8.1 % (3-12); MONOCYTE COUNT 0.4 K/uL (0-0.8); NEUTROPHIL (%) 72.1 % (45-76); NEUTROPHIL COUNT 3.9 K/uL (1.8-6.4); PLATELET COUNT 188 K/uL (156-360); RBC DIS.WIDTH-CV 15.9 % (11.8-14.6); RBC DIS.WIDTH-SD 56.8 % (39-53); RED BLOOD COUNT 3.21 M/uL (4.00-5.50); WHITE BLOOD COUNT 5.4 K/uL (4.1-10.2)
[2016-10-11 22:21] LABS: INFLUENZA A VIRAL ANTIGEN NEGATIVE; INFLUENZA B VIRAL ANTIGEN NEGATIVE
[2016-10-11 22:28] LABS: CHLORIDE 100 mEq/L (99-109); POTASSIUM 3.9 mEq/L (3.7-5.4); SODIUM 138 mEq/L (136-147)
[2016-10-11 22:30] LABS: GLUCOSE 108 mg/dL (70-99)
[2016-10-11 22:32] LABS: ANION GAP 8 MEQ/L (2-14)
[2016-10-11 22:33] LABS: TOTAL BILIRUBIN 0.4 mg/dL (0.0-1.0)
[2016-10-11 22:34] LABS: ALKALINE PHOSPHATASE 99 IU/L (3-129); GFR ESTIMATE (CALCULATED) 45 mL/min/
[2016-10-11 22:35] LABS: UREA NITROGEN (BUN) 37 mg/dL (9-23)
[2016-10-11 22:38] LABS: TROP-I INTERPRETATION NEGATIVE; TROPONIN-I 0.16 ng/mL (0.0-0.30)
[2016-10-12] MEDS ORDERED: LO-DOSE ASPIRIN81 M1 PO (00:47)
[2016-10-12] MEDS ORDERED: ASCORBIC ACID500 M3 PO (00:54)
[2016-10-12] MEDS ORDERED: NOVOLOG100 UNIT/1 SC (00:54)
[2016-10-12] MEDS ORDERED: GLUTOSE 1537.5 GM PO (00:57)
[2016-10-12] MEDS ORDERED: GLUCAGEN1 MG IM (00:57)
[2016-10-12 01:00] VITALS: BP 141/63
[2016-10-12] MEDS ORDERED: ZOFRAN4 MG PO (01:00)
[2016-10-12] MEDS ORDERED: NIZORAL 2% CREA15 GM TP (01:01)
[2016-10-12 04:45] VITALS: BP 135/72
[2016-10-12 06:05] LABS: METH RESISTANT S AUREUS PCR POSITIVE (NEGATIVE)
[2016-10-12 06:07] LABS: PROBE CHECK PASS
[2016-10-12 09:19] VITALS: BP 118/74
[2016-10-12 11:42] LABS: POINT-OF-CARE METER ID UU14174216; POINT-OF-CARE USER ID NUTSLF44
[2016-10-12 13:01] VITALS: BP 112/70
[2016-10-12 15:42] VITALS: BP 108/72
[2016-10-12 20:30] VITALS: BP 172/77
[2016-10-12 23:40] LABS: POINT-OF-CARE METER ID UU14174216
[2016-10-13 00:13] VITALS: BP 167/75
[2016-10-13 04:31] VITALS: BP 131/61
[2016-10-13 08:50] VITALS: BP 122/82
[2016-10-13 11:01] LABS: ANION GAP 10 MEQ/L (2-14); CHLORIDE 98 MEQ/L (99-109); GFR ESTIMATE (CALCULATED) 37 mL/min/; POTASSIUM 4.6 MEQ/L (3.7-5.4); SAMPLE HEMOLYSIS CHECK 0; SAMPLE ICTERIC CHECK 0; SAMPLE LIPEMIA CHECK 0; SODIUM 139 MEQ/L (136-147); UREA NITROGEN (BUN) 44 mg/dL (9-23)
[2016-10-13 11:02] LABS: GLUCOSE 174 mg/dL (70-99)
[2016-10-13 13:13] VITALS: BP 130/63
[2016-10-13 17:42] VITALS: BP 112/72
[2016-10-13 21:00] VITALS: BP 120/73
[2016-10-13 21:27] LABS: POINT-OF-CARE METER ID UU14174216
[2016-10-14] VITALS (16 sets, daily range): BP systolic 98–137; BP diastolic 52–70
[2016-10-14 05:57] LABS: POINT-OF-CARE METER ID UU13113725
[2016-10-14 11:13] LABS: CARBOXY HGB 1.8 % (0-5); METHEMOGLOBIN 1.8 % (0-1.5); PO2 81 mm Hg (80-100)
[2016-10-14 11:14] LABS: BICARBONATE 34.9 mEq/L (22-26); COMMENTS - BLOOD GASES A+C+; DEVICE NC; O2 FLOW 4 L/MIN; PCO2 71 mm Hg (35-45); SITE RR; TOTAL RESP RATE 30 resp/min
[2016-10-14 11:36] LABS: POINT-OF-CARE METER ID UU13113725
[2016-10-14 11:52] LABS: EOSINOPHIL (%) 0 % (0-5); HEMATOCRIT 29.8 % (38.0-50.0); IMMATURE GRANULOCYTE (%) 0.9 % (0.0-0.7); IMMATURE GRANULOCYTE COUNT 0.1 K/uL; INSTRUMENT ABS NEUTROPHIL CT 7.2 K/uL; LYMPHOCYTE COUNT 0.4 K/uL (1.0-2.8); MCH 29.9 PG (29.0-34.0); MCHC 30.5 G/DL (30.0-36.0); MEAN PLAT.VOLUME 9.4 uM^3 (9.0-12.4); MONOCYTE (%) 3.1 % (3-12); MONOCYTE COUNT 0.2 K/uL (0-0.8); NEUTROPHIL (%) 91.5 % (45-76); NEUTROPHIL COUNT 7.2 K/uL (1.8-6.4); PLATELET COUNT 232 K/uL (156-360); RBC DIS.WIDTH-CV 16.4 % (11.8-14.6); RBC DIS.WIDTH-SD 59.1 % (39-53); RED BLOOD COUNT 3.04 M/uL (4.00-5.50)
[2016-10-14 11:53] LABS: WHITE BLOOD COUNT 7.8 K/uL (4.1-10.2)
[2016-10-14 12:00] LABS: CHLORIDE 98 mEq/L (99-109); POTASSIUM 4.4 mEq/L (3.7-5.4); SODIUM 136 mEq/L (136-147)
[2016-10-14 12:02] LABS: GLUCOSE 207 mg/dL (70-99)
[2016-10-14 12:03] LABS: ANION GAP 12 MEQ/L (2-14)
[2016-10-14 12:05] LABS: ALKALINE PHOSPHATASE 79 IU/L (3-129)
[2016-10-14 12:06] LABS: GFR ESTIMATE (CALCULATED) 31 mL/min/
[2016-10-14 12:07] LABS: UREA NITROGEN (BUN) 56 mg/dL (9-23)
[2016-10-14 12:10] LABS: TOTAL BILIRUBIN 0.3 mg/dL (0.0-1.0)
[2016-10-14 12:23] LABS: METH RESISTANT S AUREUS PCR ND (NEGATIVE)
[2016-10-14 12:51] LABS: TROP-I INTERPRETATION NEGATIVE; TROPONIN-I 0.13 ng/mL (0.0-0.30)
[2016-10-14 14:04] LABS: BASE EXCESS 6.3 mEq/L (-3 to +3); BICARBONATE 33.4 mEq/L (22-26); CARBOXY HGB 2.3 % (0-5); COMMENTS - BLOOD GASES A+C+; DEVICE NC; METHEMOGLOBIN 1.5 % (0-1.5); O2 FLOW 2 L/MIN; PCO2 62 mm Hg (35-45); PO2 64 mm Hg (80-100); SITE RR; TOTAL RESP RATE 24 resp/min; pH 7.34 (7.35-7.45)
[2016-10-14 22:21] LABS: POINT-OF-CARE METER ID UU13113803
[2016-10-15] VITALS (21 sets, daily range): BP systolic 94–136; BP diastolic 48–67
[2016-10-15 05:37] LABS: EOSINOPHIL (%) 0 % (0-5); HEMATOCRIT 28.6 % (38.0-50.0); IMMATURE GRANULOCYTE (%) 0.7 % (0.0-0.7); INSTRUMENT ABS NEUTROPHIL CT 5.2 K/uL; LYMPHOCYTE COUNT 0.3 K/uL (1.0-2.8); MCH 29.6 PG (29.0-34.0); MCHC 30.4 G/DL (30.0-36.0); MCV 97.3 FL (86-99); MEAN PLAT.VOLUME 9.4 uM^3 (9.0-12.4); MONOCYTE (%) 2.9 % (3-12); MONOCYTE COUNT 0.2 K/uL (0-0.8); NEUTROPHIL (%) 91.9 % (45-76); NEUTROPHIL COUNT 5.2 K/uL (1.8-6.4); PLATELET COUNT 191 K/uL (156-360); RBC DIS.WIDTH-CV 16.4 % (11.8-14.6); RBC DIS.WIDTH-SD 58.5 % (39-53); RED BLOOD COUNT 2.94 M/uL (4.00-5.50); WHITE BLOOD COUNT 5.6 K/uL (4.1-10.2)
[2016-10-15 05:52] LABS: ANION GAP 9 MEQ/L (2-14); CHLORIDE 99 MEQ/L (99-109); GFR ESTIMATE (CALCULATED) 28 mL/min/; GLUCOSE 157 mg/dL (70-99); MAGNESIUM 1.9 mg/dl (1.3-2.7); POTASSIUM 4.2 MEQ/L (3.7-5.4); SAMPLE HEMOLYSIS CHECK 0; SAMPLE ICTERIC CHECK 0; SAMPLE LIPEMIA CHECK 0; SODIUM 138 MEQ/L (136-147); UREA NITROGEN (BUN) 58 mg/dL (9-23)
[2016-10-15 09:05] LABS: POINT-OF-CARE METER ID UU14162636
[2016-10-15 12:19] LABS: POINT-OF-CARE METER ID UU14162636
[2016-10-15 16:10] LABS: POINT-OF-CARE METER ID UU14162636
[2016-10-15 21:05] LABS: POINT-OF-CARE METER ID UU13113803
[2016-10-16 01:00] VITALS: BP 118/60
[2016-10-16 03:09] VITALS: BP 124/67
[2016-10-16 07:33] VITALS: BP 122/62
[2016-10-16 08:10] LABS: POINT-OF-CARE METER ID UU14174216
[2016-10-16 10:56] LABS: EOSINOPHIL (%) 0.3 % (0-5); HEMATOCRIT 28.8 % (38.0-50.0); IMMATURE GRANULOCYTE (%) 0.4 % (0.0-0.7); INSTRUMENT ABS NEUTROPHIL CT 6.7 K/uL; LYMPHOCYTE COUNT 0.3 K/uL (1.0-2.8); MCH 30.3 PG (29.0-34.0); MCHC 30.9 G/DL (30.0-36.0); MEAN PLAT.VOLUME 9.9 uM^3 (9.0-12.4); MONOCYTE (%) 7.1 % (3-12); MONOCYTE COUNT 0.5 K/uL (0-0.8); NEUTROPHIL (%) 87.6 % (45-76); NEUTROPHIL COUNT 6.7 K/uL (1.8-6.4); PLATELET COUNT 219 K/uL (156-360); RBC DIS.WIDTH-CV 16.6 % (11.8-14.6); RBC DIS.WIDTH-SD 59.8 % (39-53); RED BLOOD COUNT 2.94 M/uL (4.00-5.50); WHITE BLOOD COUNT 7.6 K/uL (4.1-10.2)
[2016-10-16 11:13] LABS: ANION GAP 9 MEQ/L (2-14); CHLORIDE 99 MEQ/L (99-109); GFR ESTIMATE (CALCULATED) 28 mL/min/; GLUCOSE 182 mg/dL (70-99); MAGNESIUM 1.9 mg/dl (1.3-2.7); POTASSIUM 3.8 MEQ/L (3.7-5.4); SAMPLE HEMOLYSIS CHECK 0; SAMPLE ICTERIC CHECK 0; SAMPLE LIPEMIA CHECK 0; SODIUM 139 MEQ/L (136-147); UREA NITROGEN (BUN) 60 mg/dL (9-23)
[2016-10-16 11:26] LABS: POINT-OF-CARE METER ID UU14174216
[2016-10-16 11:36] VITALS: BP 117/60
[2016-10-16 16:30] VITALS: BP 140/62
[2016-10-16 16:47] LABS: POINT-OF-CARE METER ID UU13113781
[2016-10-16 20:57] LABS: POINT-OF-CARE METER ID UU14174216
[2016-10-16 23:40] VITALS: BP 126/79; BP 144/83
[2016-10-17 05:14] VITALS: BP 125/73
[2016-10-17 07:02] LABS: EOSINOPHIL (%) 0.6 % (0-5); HEMATOCRIT 28.6 % (38.0-50.0); IMMATURE GRANULOCYTE (%) 0.5 % (0.0-0.7); INSTRUMENT ABS NEUTROPHIL CT 5.1 K/uL; LYMPHOCYTE COUNT 0.5 K/uL (1.0-2.8); MCHC 30.4 G/DL (30.0-36.0); MCV 98.6 FL (86-99); MEAN PLAT.VOLUME 9.4 uM^3 (9.0-12.4); MONOCYTE (%) 8.6 % (3-12); MONOCYTE COUNT 0.5 K/uL (0-0.8); NEUTROPHIL (%) 81.9 % (45-76); NEUTROPHIL COUNT 5.1 K/uL (1.8-6.4); PLATELET COUNT 203 K/uL (156-360); RBC DIS.WIDTH-CV 16.5 % (11.8-14.6); RBC DIS.WIDTH-SD 60.4 % (39-53); WHITE BLOOD COUNT 6.2 K/uL (4.1-10.2)
[2016-10-17 07:28] LABS: ANION GAP 9 MEQ/L (2-14); CHLORIDE 99 MEQ/L (99-109); GFR ESTIMATE (CALCULATED) 27 mL/min/; GLUCOSE 126 mg/dL (70-99); MAGNESIUM 1.9 mg/dl (1.3-2.7); POTASSIUM 3.9 MEQ/L (3.7-5.4); SAMPLE HEMOLYSIS CHECK 0; SAMPLE ICTERIC CHECK 0; SAMPLE LIPEMIA CHECK 0; SODIUM 139 MEQ/L (136-147); UREA NITROGEN (BUN) 57 mg/dL (9-23)
[2016-10-17 08:00] VITALS: BP 133/71
[2016-10-17 08:05] LABS: POINT-OF-CARE METER ID UU14174216
[2016-10-17 11:35] LABS: POINT-OF-CARE METER ID UU14174216
[2016-10-17 12:00] VITALS: BP 138/82
[2016-10-17 15:59] VITALS: BP 132/76
[2016-10-17 19:58] VITALS: BP 124/64
[2016-10-17 20:40] LABS: ADD MIUA? YES; BILIRUBIN NEGATIVE; BLOOD SMALL; COLOR YELLOW ((YELLOW)); GLUCOSE (STRIP) 150; KETONES NEGATIVE; LEUKOCYTES NEGATIVE; NITRITE NEGATIVE; PROTEIN (STRIP) >=500; SPECIFIC GRAVITY 1.015 (1.000-1.030); UROBILINOGEN 0.2 MG/DL (0.2-1.0)
[2016-10-17 21:20] LABS: BACTERIA NONE SEEN /HPF; EPITHELIAL CELLS RARE /HPF; HYALINE CASTS 0-5 /LPF; MUCUS TRACE /LPF; UNCLASSIFIED CRYSTALS 1+ /HPF; WHITE BLOOD CELLS 0-5 /HPF (0-5)
[2016-10-17 21:48] LABS: UR CREATININE CONCENTRATION 63.9 MG/DL
[2016-10-18 00:06] VITALS: BP 133/77
[2016-10-18 05:48] VITALS: BP 121/68
[2016-10-18 06:40] LABS: EOSINOPHIL (%) 0 % (0-5); HEMATOCRIT 31.2 % (38.0-50.0); IMM.RETIC FRACTION 14.6 % (3-19); IMMATURE GRANULOCYTE (%) 0.4 % (0.0-0.7); LYMPHOCYTE COUNT 0.2 K/uL (1.0-2.8); MCH 29.9 PG (29.0-34.0); MCHC 29.8 G/DL (30.0-36.0); MCV 100.3 FL (86-99); MEAN PLAT.VOLUME 9.4 uM^3 (9.0-12.4); MONOCYTE (%) 3.3 % (3-12); MONOCYTE COUNT 0.2 K/uL (0-0.8); NEUTROPHIL (%) 92.2 % (45-76); PLATELET COUNT 226 K/uL (156-360); RBC DIS.WIDTH-CV 16.5 % (11.8-14.6); RBC DIS.WIDTH-SD 60.7 % (39-53); RED BLOOD COUNT 3.11 M/uL (4.00-5.50); RETIC HGB EQUIVALENT 32.4 (28-36); RETICULOCYTE COUNT 2.1 % (0.5-1.8); WHITE BLOOD COUNT 5.4 K/uL (4.1-10.2)
[2016-10-18 06:45] LABS: EOSINOPHIL (%) 0 % (0-5); HEMATOCRIT 30.2 % (38.0-50.0); IMMATURE GRANULOCYTE (%) 0.8 % (0.0-0.7); INSTRUMENT ABS NEUTROPHIL CT 4.8 K/uL; LYMPHOCYTE COUNT 0.2 K/uL (1.0-2.8); MCH 30.3 PG (29.0-34.0); MCHC 30.1 G/DL (30.0-36.0); MCV 100.7 FL (86-99); MEAN PLAT.VOLUME 9.3 uM^3 (9.0-12.4); MONOCYTE (%) 3.2 % (3-12); MONOCYTE COUNT 0.2 K/uL (0-0.8); NEUTROPHIL (%) 91.8 % (45-76); NEUTROPHIL COUNT 4.8 K/uL (1.8-6.4); PLATELET COUNT 210 K/uL (156-360); RBC DIS.WIDTH-CV 16.5 % (11.8-14.6); RBC DIS.WIDTH-SD 60.6 % (39-53); WHITE BLOOD COUNT 5.3 K/uL (4.1-10.2)
[2016-10-18 07:00] LABS: IRON 76 MCG/DL (35-150); MAGNESIUM 2.1 mg/dl (1.3-2.7)
[2016-10-18 07:03] LABS: ANION GAP 8 MEQ/L (2-14); CHLORIDE 100 MEQ/L (99-109); GFR ESTIMATE (CALCULATED) 25 mL/min/; GLUCOSE 149 mg/dL (70-99); SAMPLE HEMOLYSIS CHECK 0; SAMPLE ICTERIC CHECK 0; SAMPLE LIPEMIA CHECK 0; SODIUM 140 MEQ/L (136-147); UREA NITROGEN (BUN) 61 mg/dL (9-23)
[2016-10-18 07:19] LABS: URIC ACID 7.2 mg/dL (3.1-9.2)
[2016-10-18 07:41] VITALS: BP 143/67
[2016-10-18 07:59] LABS: POINT-OF-CARE METER ID UU14174216
[2016-10-18 08:10] LABS: BASE EXCESS 6.8 mEq/L (-3 to +3); BICARBONATE 36.4 mEq/L (22-26); CARBOXY HGB 1.6 % (0-5); METHEMOGLOBIN 1.2 % (0-1.5)
[2016-10-18 08:12] LABS: O2 FLOW 3 L/MIN; PCO2 89 mm Hg (35-45); PO2 131 mm Hg (80-100); SITE RR
[2016-10-18 08:13] LABS: DEVICE NC; TOTAL RESP RATE 14 resp/min; pH 7.22 (7.35-7.45)
[2016-10-18 11:45] LABS: POINT-OF-CARE METER ID UU14174216
[2016-10-18 15:45] VITALS: BP 148/69
[2016-10-18 16:40] LABS: POINT-OF-CARE METER ID UU14174216
[2016-10-18 20:18] VITALS: BP 125/69
[2016-10-18 20:48] LABS: POINT-OF-CARE METER ID UU13113781
[2016-10-19 00:46] VITALS: BP 133/69
[2016-10-19 05:01] VITALS: BP 148/72
[2016-10-19 06:56] LABS: EOSINOPHIL (%) 0 % (0-5); HEMATOCRIT 27.9 % (38.0-50.0); IMMATURE GRANULOCYTE (%) 0.6 % (0.0-0.7); INSTRUMENT ABS NEUTROPHIL CT 4.9 K/uL; LYMPHOCYTE COUNT 0.3 K/uL (1.0-2.8); MCH 30.1 PG (29.0-34.0); MCHC 31.2 G/DL (30.0-36.0); MONOCYTE (%) 2.1 % (3-12); MONOCYTE COUNT 0.1 K/uL (0-0.8); NEUTROPHIL (%) 92.2 % (45-76); NEUTROPHIL COUNT 4.9 K/uL (1.8-6.4); PLATELET COUNT 211 K/uL (156-360); RBC DIS.WIDTH-CV 16.2 % (11.8-14.6); RED BLOOD COUNT 2.89 M/uL (4.00-5.50); WHITE BLOOD COUNT 5.3 K/uL (4.1-10.2)
[2016-10-19 07:10] LABS: ANION GAP 9 MEQ/L (2-14); CHLORIDE 97 MEQ/L (99-109); GFR ESTIMATE (CALCULATED) 26 mL/min/; GLUCOSE 175 mg/dL (70-99); POTASSIUM 3.7 MEQ/L (3.7-5.4); SAMPLE HEMOLYSIS CHECK 0; SAMPLE ICTERIC CHECK 0; SAMPLE LIPEMIA CHECK 0; SODIUM 138 MEQ/L (136-147); UREA NITROGEN (BUN) 62 mg/dL (9-23)
[2016-10-19 07:23] LABS: MCV 96.5 FL (86-99)
[2016-10-19 08:15] VITALS: BP 159/77
[2016-10-19 11:26] VITALS: BP 146/82
[2016-10-19 12:15] LABS: POINT-OF-CARE METER ID UU14174216; POINT-OF-CARE USER ID ENVKC36
[2016-10-19 17:38] VITALS: BP 158/72
[2016-10-19 21:27] LABS: POINT-OF-CARE METER ID UU13113725
[2016-10-19 22:45] VITALS: BP 124/74
[2016-10-20 05:59] LABS: POINT-OF-CARE METER ID UU13113725
[2016-10-20 06:35] LABS: EOSINOPHIL (%) 0.2 % (0-5); HEMATOCRIT 28.8 % (38.0-50.0); IMMATURE GRANULOCYTE (%) 0.7 % (0.0-0.7); INSTRUMENT ABS NEUTROPHIL CT 5.5 K/uL; LYMPHOCYTE COUNT 0.2 K/uL (1.0-2.8); MCH 30.9 PG (29.0-34.0); MCHC 31.9 G/DL (30.0-36.0); MCV 96.6 FL (86-99); MEAN PLAT.VOLUME 9.9 uM^3 (9.0-12.4); MONOCYTE COUNT 0.2 K/uL (0-0.8); NEUTROPHIL (%) 92.6 % (45-76); NEUTROPHIL COUNT 5.5 K/uL (1.8-6.4); NRBC (%) 0.7 /100 WBC (0-0); PLATELET COUNT 199 K/uL (156-360); RBC DIS.WIDTH-CV 16.4 % (11.8-14.6); RED BLOOD COUNT 2.98 M/uL (4.00-5.50)
[2016-10-20 07:12] LABS: ANION GAP 11 MEQ/L (2-14); CHLORIDE 100 MEQ/L (99-109); GFR ESTIMATE (CALCULATED) 27 mL/min/; GLUCOSE 191 mg/dL (70-99); MAGNESIUM 2.1 mg/dl (1.3-2.7); SAMPLE HEMOLYSIS CHECK 1; SAMPLE ICTERIC CHECK 0; SAMPLE LIPEMIA CHECK 0; SODIUM 137 MEQ/L (136-147); UREA NITROGEN (BUN) 63 mg/dL (9-23)
[2016-10-20 07:15] LABS: POTASSIUM 4.1 MEQ/L (3.7-5.4)
[2016-10-20 07:16] VITALS: BP 125/70
[2016-10-20 11:19] LABS: POINT-OF-CARE METER ID UU13113725
[2016-10-20 16:30] VITALS: BP 124/56
[2016-10-20 17:02] LABS: POINT-OF-CARE METER ID UU13113725
[2016-10-20 21:31] VITALS: BP 138/77
[2016-10-20 21:31] LABS: POINT-OF-CARE METER ID UU13113725
[2016-10-20 23:43] VITALS: BP 113/59
[2016-10-21 09:03] LABS: EOSINOPHIL (%) 0 % (0-5); IMMATURE GRANULOCYTE (%) 0.8 % (0.0-0.7); IMMATURE GRANULOCYTE COUNT 0.1 K/uL; LYMPHOCYTE COUNT 0.2 K/uL (1.0-2.8); MCH 30.3 PG (29.0-34.0); MCHC 31.4 G/DL (30.0-36.0); MCV 96.7 FL (86-99); MEAN PLAT.VOLUME 10.2 uM^3 (9.0-12.4); MONOCYTE (%) 4.5 % (3-12); MONOCYTE COUNT 0.3 K/uL (0-0.8); NEUTROPHIL (%) 91.5 % (45-76); PLATELET COUNT 201 K/uL (156-360); RBC DIS.WIDTH-CV 16.6 % (11.8-14.6); RBC DIS.WIDTH-SD 59.1 % (39-53); WHITE BLOOD COUNT 7.6 K/uL (4.1-10.2)
[2016-10-21 09:11] LABS: ANION GAP 9 MEQ/L (2-14); CHLORIDE 100 MEQ/L (99-109); GFR ESTIMATE (CALCULATED) 28 mL/min/; GLUCOSE 161 mg/dL (70-99); MAGNESIUM 2.1 mg/dl (1.3-2.7); POTASSIUM 3.8 MEQ/L (3.7-5.4); SAMPLE HEMOLYSIS CHECK 0; SAMPLE ICTERIC CHECK 0; SAMPLE LIPEMIA CHECK 0; SODIUM 140 MEQ/L (136-147); UREA NITROGEN (BUN) 61 mg/dL (9-23)
[2016-10-21 09:58] VITALS: BP 149/73
[2016-10-21 12:07] LABS: POINT-OF-CARE METER ID UU13113725
[2016-10-21 16:25] VITALS: BP 136/71
[2016-10-21 23:03] VITALS: BP 134/64
[2016-10-22 06:19] LABS: POINT-OF-CARE METER ID UU13113725
[2016-10-22 07:09] VITALS: BP 134/67
[2016-10-22 09:42] LABS: EOSINOPHIL (%) 0 % (0-5); HEMATOCRIT 27.6 % (38.0-50.0); IMMATURE GRANULOCYTE (%) 1.1 % (0.0-0.7); IMMATURE GRANULOCYTE COUNT 0.1 K/uL; INSTRUMENT ABS NEUTROPHIL CT 5.8 K/uL; LYMPHOCYTE COUNT 0.2 K/uL (1.0-2.8); MCH 30.7 PG (29.0-34.0); MCHC 31.9 G/DL (30.0-36.0); MCV 96.2 FL (86-99); MEAN PLAT.VOLUME 10.1 uM^3 (9.0-12.4); MONOCYTE (%) 5.4 % (3-12); MONOCYTE COUNT 0.4 K/uL (0-0.8); NEUTROPHIL (%) 89.9 % (45-76); NEUTROPHIL COUNT 5.8 K/uL (1.8-6.4); PLATELET COUNT 172 K/uL (156-360); RBC DIS.WIDTH-CV 16.8 % (11.8-14.6); RBC DIS.WIDTH-SD 59.2 % (39-53); RED BLOOD COUNT 2.87 M/uL (4.00-5.50); WHITE BLOOD COUNT 6.4 K/uL (4.1-10.2)
[2016-10-22 09:54] LABS: INTER. NORMALIZED RATIO 1.2; PROTHROMBIN TIME 12.1 (9.2-11.2); PTT 29.6 (25-32)
[2016-10-22 10:05] LABS: ANION GAP 7 MEQ/L (2-14); CHLORIDE 98 MEQ/L (99-109); GFR ESTIMATE (CALCULATED) 33 mL/min/; GLUCOSE 227 mg/dL (70-99); POTASSIUM 3.6 MEQ/L (3.7-5.4); SAMPLE HEMOLYSIS CHECK 0; SAMPLE ICTERIC CHECK 0; SAMPLE LIPEMIA CHECK 0; SODIUM 135 MEQ/L (136-147); UREA NITROGEN (BUN) 61 mg/dL (9-23)
[2016-10-22 15:07] VITALS: BP 140/87
[2016-10-22 15:34] LABS: POINT-OF-CARE METER ID UU13113725
[2016-10-22 23:29] VITALS: BP 129/68
[2016-10-23 05:57] LABS: POINT-OF-CARE METER ID UU13113725
[2016-10-23 06:23] LABS: POINT-OF-CARE METER ID UU13113725
[2016-10-23 07:22] LABS: EOSINOPHIL (%) 0 % (0-5); IMMATURE GRANULOCYTE COUNT 0.1 K/uL; INSTRUMENT ABS NEUTROPHIL CT 6.1 K/uL; LYMPHOCYTE COUNT 0.4 K/uL (1.0-2.8); MCH 30.4 PG (29.0-34.0); MCHC 31.9 G/DL (30.0-36.0); MCV 95.4 FL (86-99); MEAN PLAT.VOLUME 9.9 uM^3 (9.0-12.4); MONOCYTE (%) 7.2 % (3-12); MONOCYTE COUNT 0.5 K/uL (0-0.8); NEUTROPHIL (%) 86.6 % (45-76); NEUTROPHIL COUNT 6.1 K/uL (1.8-6.4); PLATELET COUNT 159 K/uL (156-360); RBC DIS.WIDTH-CV 16.6 % (11.8-14.6); RBC DIS.WIDTH-SD 58.5 % (39-53); RED BLOOD COUNT 2.83 M/uL (4.00-5.50)
[2016-10-23 07:46] LABS: ANION GAP 7 MEQ/L (2-14); CHLORIDE 100 MEQ/L (99-109); GFR ESTIMATE (CALCULATED) 33 mL/min/; GLUCOSE 147 mg/dL (70-99); POTASSIUM 3.6 MEQ/L (3.7-5.4); SAMPLE HEMOLYSIS CHECK 0; SAMPLE ICTERIC CHECK 0; SAMPLE LIPEMIA CHECK 0; SODIUM 137 MEQ/L (136-147); UREA NITROGEN (BUN) 60 mg/dL (9-23)
[2016-10-23 11:00] VITALS: BP 165/84
[2016-10-23 16:00] VITALS: BP 146/78
[2016-10-23] MEDS ORDERED: SPIRIVA RESPIMAT4 GM IH (16:43)
[2016-10-23] MEDS ORDERED: FUROSEMIDE40 MG PO (16:45)
[2016-10-23] MEDS ORDERED: ADVAIR HFA120 INHALA IH (16:46)
[2016-10-23] MEDS ORDERED: FAMOTIDINE20 MG PO (16:46)
[2016-10-23] MEDS ORDERED: LEVEMIR100 UNIT/2 SC (16:46)
[2016-10-23] MEDS ORDERED: NOVOLOG PE100 UNITS/ SC (16:47)
[2016-10-23] MEDS ORDERED: PREDNISONE10 MG PO (16:56)
== END 2016-10-23 20:17 | DRG 190 ==
LOC: EME 19:30 → 4WEST 23:24 → 5EAST 23:24 → EDOF 23:24 → 4EAST 23:24 → 5EAST 10-14 00:57 → 4WEST 10-14 11:35 → 4EAST 10-16 00:44 → 5EAST 10-19 15:40
PROVIDERS: Emergency Medicine; Internal Medicine; Internal Medicine Nephrology
PROC: 0W993ZZ Drainage of Right Pleural Cavity, Percutaneous Approach (ICD-10-PCS; principal; 2016-10-22)
DX: J44.1 Chronic obstructive pulmonary disease with (acute) exacerbation (principal); I50.33 Acute on chronic diastolic (congestive) heart failure; J96.22 Acute and chronic respiratory failure with hypercapnia; G93.41 Metabolic encephalopathy; I13.0 Hypertensive heart and chronic kidney disease with heart failure and stage 1 through stage 4 chronic kidney disease, or unspecified chronic kidney disease; N18.3 Chronic kidney disease, stage 3 (moderate); I25.10 Atherosclerotic heart disease of native coronary artery without angina pectoris; I48.0 Paroxysmal atrial fibrillation; J90 Pleural effusion, not elsewhere classified; I25.5 Ischemic cardiomyopathy; D63.8 Anemia in other chronic diseases classified elsewhere; R13.10 Dysphagia, unspecified; Z87.891 Personal history of nicotine dependence; I25.2 Old myocardial infarction; E66.9 Obesity, unspecified; Z68.32 Body mass index [BMI] 32.0-32.9, adult; N17.9 Acute kidney failure, unspecified; E11.65 Type 2 diabetes mellitus with hyperglycemia; M48.06 Spinal stenosis, lumbar region; M70.22 Olecranon bursitis, left elbow; N28.89 Other specified disorders of kidney and ureter; Q79.1 Other congenital malformations of diaphragm
CPT/HCPCS: 36600; 70450; 71010; 71020; 74230; 76770; 80048; 80053; 80069; 80202; 81003; 82140; 82570; 82746; 82803; 82948; 83540; 83605; 83735; 83880; 83935; 84100; 84156; 84300; 84466; 84484; 84550; 85025; 85025 91; 85045; 85610; 85730; 87040; 87502; 87641; 92526 GN; 92610 GN; 92611 GN; 93005; 94003; 94640; 94640 76; 94760; 94799; 99202; 99281; 99285; J1644; J1815; J1940; J1956; J2405; J2543; J2920; J2930; J3370; J7050; S0028